=== PATIENT | female | born 1965 | race Caucasian/White ===

== ENCOUNTER 2021-01-10 17:19 | Emergency (ER) | payer MEDICAID ==
[~2021-01-10] VITALS: Ht 162.6 cm; Wt 67.1 kg
[2021-01-10 17:23] VITALS: BP 143/101
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
--- NOTE | 2021-01-10 17:33 | NUR ---
LACERATION SET UP AT PT BEDSIDE. ER MD NOTIFIED.
[2021-01-10] MEDS ORDERED: BACITRACIN OINT 500 UNITS/GM PKT TP ONE (17:35)
[2021-01-10] MEDS ORDERED: LIDOCAINE MPF 1% 10 MG/ML VIAL INJ ONE ×3 (17:35→17:55)
[2021-01-10] MEDS ORDERED: IBUPROFEN 600 MG TAB PO ONE (17:40)
--- NOTE | 2021-01-10 18:00 | NUR ---
SHERIDAN CENTENO AT CHAIRSIDE FOR LACERATION REPAIR
[2021-01-10] MEDS ORDERED: IBUP-2213 PO (18:50)
[2021-01-10] MEDS ORDERED: CEPH500C16 PO (18:50)
[2021-01-10] MEDS ORDERED: ONDANSETRON 4 MG ODT PO ONE (19:00)
[2021-01-10] MEDS ORDERED: HYDROcodone/APAP 5/325 MG 1 TAB TAB PO ONE (19:00)
--- NOTE | 2021-01-10 19:00 | NUR ---
APPLIED BACITRACIN ON PT'S WOUND. PT'S WOUND DRESSED WITH NON-ADHERENT GAUZE PAD AND WRAPPED WITH 2" GAUZE ROLL. PT WAS PLACED IN A SHORT FINGER SPLINT. [facility] WNL BEFORE AND AFTER SPLINT. PA NOTIFIED.
[2021-01-10 19:14] VITALS: BP 131/89
--- NOTE | 2021-01-10 19:17 | NUR ---
Patient discharged with v/s stable. Written and verbal after care instructions given and explained. Patient alert, oriented and verbalized understanding of instructions. Ambulatory with steady gait. All questions addressed prior to discharge. ID band removed. Patient advised to follow up with PMD. Rx of keflex and norco given. Patient educated on indication of medication including possible reaction and side effects. Opportunity to ask questions provided and answered.
== END 2021-01-10 19:17 | disposition home or self-care (01) ==
LOC: MED 17:19
DX: S61.211A Laceration without foreign body of left index finger without damage to nail, initial encounter (principal); Z79.899 Other long term (current) drug therapy; W26.0XXA Contact with knife, initial encounter; Y93.89 Activity, other specified; Y92.89 Other specified places as the place of occurrence of the external cause; Y99.8 Other external cause status
CPT/HCPCS: 12001; 73140; 90471; 90715; 99284; J2001; Q0162; 99283